=== PATIENT | female | born 1950 | race Caucasian/White ===

== ENCOUNTER 2016-06-23 08:25 | Emergency (ER) | payer OTHER ==
[~2016-06-23] VITALS: Ht 167.6 cm; Wt 79.4 kg
[~2016-06-23 08:25] MED LIST: ALBU18HF2 IH; DULO30CA2 PO; IPRA12.9 INH; Ipratropium Bromide NEB; LISI40TA4 PO; PRED50TA PO; TRAM50TA2 PO
[2016-06-23] MEDS ORDERED: ALBUTEROL FS 2.5 MG/3 ML VIAL.NEB ONE ×2 (09:16→11:08)
[2016-06-23] MEDS ORDERED: IPRATROPIUM NEB FS 0.5 MG/2.5 ML AMPUL.NEB ONE (09:16)
[2016-06-23] MEDS ORDERED: methylPREDNISolone SOD SUCC 125 MG/2ML VIAL ONE (09:26)
[2016-06-23] MEDS ORDERED: methylPREDNISolone SOD SUCC 125 MG/2ML VIAL IV ONE (09:30)
[2016-06-23] MEDS ORDERED: IPRATROPIUM NEB FS 0.5 MG/2.5 ML AMPUL.NEB NEB ONE (09:30)
[2016-06-23] MEDS ORDERED: ALBUTEROL FS 2.5 MG/3 ML VIAL.NEB CONTNEB ONE ×2 (09:30→11:00)
[2016-06-23 09:35] LABS: BASOPHILS % (AUTO) 0.5 % (0.0-2.0); DIFF TOTAL % 100 %; EOSINOPHILS % (AUTO) 0.8 % (0.0-6.0); HEMATOCRIT 41 % (33-45); HEMOGLOBIN 13.4 g/dL (11.5-14.8); LYMPHOCYTES # (AUTO) 1.7 /CMM (0.8-4.8); LYMPHOCYTES % (AUTO) 27.4 % (20.0-44.0); MEAN CORPUSCULAR HEMOGLOBIN 26 PG (26.0-33.0); MEAN CORPUSCULAR HGB CONC 33 g/dl (31.0-36.0); MEAN CORPUSCULAR VOLUME 81 fL (82-100); MONOCYTES # (AUTO) 0.4 /CMM (0.1-1.30); MONOCYTES % (AUTO) 6.9 % (2.0-12.0); NEUTROPHILS # (AUTO) 3.9 /CMM (1.8-8.9); NEUTROPHILS % (AUTO) 64.4 % (43.0-81.0); PLATELET COUNT (AUTO) 248 /CMM (150-450); RED BLOOD CELL COUNT(AUTO) 5.09 MIL/uL (4.0-5.2)
[2016-06-23 09:41] LABS: ANION GAP 11 (5-14); CALCIUM, SERUM 8.9 mg/dL (8.5-10.1); CARBON DIOXIDE 31 mmol/L (21-32); CHLORIDE 105 mmol/L (98-107); CREATININE 0.9 mg/dL (0.6-1.3); GFR 63 mL/min (>60); GLUCOSE 119 mg/dL (74-106); POTASSIUM 3.6 mmol/L (3.5-5.1); SODIUM SERUM 143 mmol/L (136-145); UREA NITROGEN, BLOOD 21 mg/dL (7-18)
[2016-06-23 09:49] LABS: TROPONIN I < 0.017 ng/mL (0.00-0.056)
[2016-06-23] MEDS ORDERED: ACETAMINOPHEN 325 MG TABLET PO ONE (11:00)
[2016-06-23] MEDS ORDERED: ACETAMINOPHEN 325 MG TABLET ONE (11:01)
[2016-06-23 11:59] VITALS: BP 143/78
== END 2016-06-23 11:59 | disposition home or self-care (01) ==
LOC: ER 08:27
DX: R06.02 Shortness of breath (principal); F32.9 Major depressive disorder, single episode, unspecified; J44.9 Chronic obstructive pulmonary disease, unspecified; F17.200 Nicotine dependence, unspecified, uncomplicated; I10 Essential (primary) hypertension; Z88.0 Allergy status to penicillin; Z99.81 Dependence on supplemental oxygen
CPT/HCPCS: 36415; 71010; 80048; 83880; 84484; 85025; 93005; 94640; 96374; 99285; A4606; J2930; Z7610

== ENCOUNTER 2016-07-22 10:45 | Emergency (ER) | payer OTHER ==
[~2016-07-22] VITALS: Ht 160 cm; Wt 77.1 kg
[2016-07-22] MEDS ORDERED: ALBUTEROL FS 2.5 MG/3 ML VIAL.NEB NEB ONE ×2 (11:30→14:30)
[2016-07-22] MEDS ORDERED: IPRATROPIUM NEB FS 0.5 MG/2.5 ML AMPUL.NEB NEB ONE ×2 (11:30→14:30)
[2016-07-22] MEDS ORDERED: IPRATROPIUM NEB FS 0.5 MG/2.5 ML AMPUL.NEB ONE ×2 (11:32→14:20)
[2016-07-22] MEDS ORDERED: ALBUTEROL FS 2.5 MG/3 ML VIAL.NEB ONE ×2 (11:32→14:19)
[2016-07-22 11:33] LABS: BASOPHILS % (AUTO) 0.6 % (0.0-2.0); DIFF TOTAL % 100 %; EOSINOPHILS % (AUTO) 0.5 % (0.0-6.0); HEMATOCRIT 39 % (33-45); HEMOGLOBIN 12.5 g/dL (11.5-14.8); LYMPHOCYTES # (AUTO) 1.5 /CMM (0.8-4.8); LYMPHOCYTES % (AUTO) 19.3 % (20.0-44.0); MEAN CORPUSCULAR HEMOGLOBIN 26 PG (26.0-33.0); MEAN CORPUSCULAR HGB CONC 32 g/dl (31.0-36.0); MEAN CORPUSCULAR VOLUME 82 fL (82-100); MONOCYTES # (AUTO) 0.7 /CMM (0.1-1.30); MONOCYTES % (AUTO) 8.6 % (2.0-12.0); NEUTROPHILS # (AUTO) 5.6 /CMM (1.8-8.9); PLATELET COUNT (AUTO) 245 /CMM (150-450); RED BLOOD CELL COUNT(AUTO) 4.74 MIL/uL (4.0-5.2); WHITE BLOOD COUNT (AUTO) 7.9 K/uL (4.3-11.0)
[2016-07-22 11:39] LABS: ANION GAP 14 (5-14); CARBON DIOXIDE 27 mmol/L (21-32); CHLORIDE 105 mmol/L (98-107); GFR 56 mL/min (>60); GLUCOSE 128 mg/dL (74-106); POTASSIUM 3.7 mmol/L (3.5-5.1); SODIUM SERUM 142 mmol/L (136-145); UREA NITROGEN, BLOOD 21 mg/dL (7-18)
[2016-07-22 11:45] LABS: TROPONIN I < 0.017 ng/mL (0.00-0.056)
[2016-07-22 11:52] LABS: ALANINE AMINOTRANSFERASE 20 U/L (12-78); ALBUMIN 3.5 g/dL (3.4-5.0); ASPARTATE AMINOTRANSFERASE 13 U/L (15-37); BILIRUBIN,DIRECT 0.1 mg/dL (0.0-0.2); BILIRUBIN,TOTAL 0.4 mg/dL (0.2-1.0); INDIRECT BILIRUBIN 0.3 mg/dL (0.0-1.1); TOTAL PROTEIN, SERUM 6.9 g/dL (6.4-8.2)
[2016-07-22 11:58] LABS: LACTIC ACID 3.2 mmol/L (0.4-2.0)
[2016-07-22 12:15] LABS: INR 0.96 (0.87-1.13); PROTHROMBIN TIME 10.4 SECS (9.5-12.7)
[2016-07-22 12:26] LABS: *LACTIC ACID REFLEX FLAG YES
[2016-07-22 13:21] LABS: ADD UA MICROSCOPIC NO; KETONES,URINE Negative (NEGATIVE); LEUKOCYTE ESTERASE ,URINE Negative (NEGATIVE); PH,URINE 8.5 (5.0-8.0)
[2016-07-22 13:56] VITALS: BP 120/80
[2016-07-22] MEDS ORDERED: LEVOFLOXACIN (500MG) 500 MG TABLET ONE (14:17)
[2016-07-22] MEDS ORDERED: methylPREDNISolone SOD SUCC 125 MG/2ML VIAL ONE (14:17)
[2016-07-22] MEDS ORDERED: methylPREDNISolone SOD SUCC 125 MG/2ML VIAL IV ONE (14:30)
[2016-07-22] MEDS ORDERED: LEVOFLOXACIN (500MG) 500 MG TABLET PO ONE (14:30)
== END 2016-07-22 16:10 | disposition short-term general hospital (02) ==
LOC: ER 10:51
DX: J44.1 Chronic obstructive pulmonary disease with (acute) exacerbation (principal); I10 Essential (primary) hypertension; F32.9 Major depressive disorder, single episode, unspecified; F17.200 Nicotine dependence, unspecified, uncomplicated; Z90.710 Acquired absence of both cervix and uterus; Z88.0 Allergy status to penicillin
CPT/HCPCS: 36415; 71010; 80048; 80076; 81001; 83605 ×2; 83880; 84484; 85025; 85730; 87040 ×2; 87081; 93005; 94640 ×3; 96374; 99285; A4606; J2930; Z7610; 81000-TC